=== PATIENT | female | born 1995 | race Caucasian/White ===

== ENCOUNTER 2020-04-14 21:03 | Emergency (ER) | payer OTHER ==
[~2020-04-14] VITALS: Ht 160 cm; Wt 65.8 kg
--- NOTE | 2020-04-14 21:17 | NUR ---
PT AAOX4, AMBULATORY WITH STEADY GAIT. BIBSELF C/O "I WAS HIKING AND I ATE SHIT." PER ASSESSMENT C/O R JANET FINGER AND R MIDDLE FINGER PAIN S/P FALL. -KO, -TRUMA. VSS. RR EVEN AND UNLABORED. SKIN WARM AND INTACT. PLACED ON MONITOR AND PULSE OX. AWAITING MD FOR EVAL AND ORDERS. WILL CONTINUE TO MONITOR.
--- NOTE | 2020-04-14 21:20 | NUR ---
PT SIGNED WAIVER.
--- NOTE | 2020-04-14 21:40 | NUR ---
XRAY AT BEDSIDE
[2020-04-14 22:08] VITALS: BP 128/79
--- NOTE | 2020-04-14 22:08 | NUR ---
Patient discharged to home in stable condition. Written and verbal after care instructions given. Patient verbalizes understanding of instruction. Pt ambulated with steady gait. vss.
== END 2020-04-14 22:12 | disposition home or self-care (01) ==
LOC: ER 21:03
DX: S62.600A Fracture of unspecified phalanx of right index finger, initial encounter for closed fracture (principal); S62.602A Fracture of unspecified phalanx of right middle finger, initial encounter for closed fracture; W01.0XXA Fall on same level from slipping, tripping and stumbling without subsequent striking against object, initial encounter; Y93.89 Activity, other specified; Y92.89 Other specified places as the place of occurrence of the external cause; Y99.8 Other external cause status
CPT/HCPCS: 73130-TC